=== PATIENT | female | born 1995 | race Two or more races ===

== ENCOUNTER 2019-04-04 22:51 | Emergency (ER) | payer MEDICAID, OTHER ==
[~2019-04-04] VITALS: Ht 149.9 cm; Wt 52.2 kg
[2019-04-04 23:44] VITALS: BP 117/87
== END 2019-04-05 01:03 | disposition left against medical advice (07) ==
LOC: ER 22:54
DX: N39.0 Urinary tract infection, site not specified (principal); Z53.21 Procedure and treatment not carried out due to patient leaving prior to being seen by health care provider

== ENCOUNTER 2022-09-24 05:14 | Emergency (ER) | payer MEDICAID ==
[~2022-09-24] VITALS: Ht 149.9 cm; Wt 59.1 kg
[2022-09-24 08:04] VITALS: BP 107/58
[2022-09-24] MEDS ORDERED: ACETAMINOPHEN 500 MG TAB PO ONE (09:00)
[2022-09-24] MEDS ORDERED: CEPH-510 PO (10:10)
== END 2022-09-24 10:14 | disposition home or self-care (01) ==
LOC: ER 05:14
DX: S91.201A Unspecified open wound of right great toe with damage to nail, initial encounter (principal); Z88.1 Allergy status to other antibiotic agents; X58.XXXA Exposure to other specified factors, initial encounter; Y93.89 Activity, other specified; Y92.89 Other specified places as the place of occurrence of the external cause; Y99.8 Other external cause status
CPT/HCPCS: 73630

== ENCOUNTER 2022-11-14 08:43 | Emergency (ER) | payer MEDICAID ==
[~2022-11-14] VITALS: Ht 149.9 cm; Wt 59.6 kg
[~2022-11-14 08:43] MED LIST: CEPH-510 PO
[2022-11-14 09:16] LABS: Urine Bacteria NONE SEEN /hpf (None Seen); Urine Blood 3+ /uL (Negative); Urine Specific Gravity 1.023 (1.001-1.035); Urine WBC 1 /hpf (0 - 5)
[2022-11-14 09:26] LABS: Basophils # (auto) 0 10 ^3/uL (0-0.2); Basophils % (auto) 0.8 % (0.0-2.0); Eosinophils # (auto) 0.1 10 ^3/uL (0-0.8); Eosinophils % (auto) 1.2 % (0.0-7.0); Hematocrit 39.7 % (36.0-46.0); Hemoglobin 13.3 g/dL (12.2-16.2); Lymphocytes # (auto) 1.8 10 ^3/uL (0.4-5.4); Lymphocytes % (auto) 30.6 % (10.0-50.0); Mean Corpuscular Hemoglobin 31.2 pg (28.0-32.0); Mean Corpuscular Hgb Conc. 33.6 g/dL (32.0-36.0); Mean Corpuscular Volume 93.1 fL (80.0-100.0); Monocytes # (auto) 0.4 10 ^3/uL (0-1.3); Monocytes % (auto) 6.2 % (0.0-12.0); Neutrophils # (auto) 3.7 10 ^3/uL (1.6-8.6); Neutrophils % (auto) 61.2 % (37.0-80.0); Red Blood Cells 4.26 10^6/uL (4.0-5.20); Red Cell Distribution Width 12.4 % (11.8-14.3)
[2022-11-14 09:53] LABS: Albumin 3.7 g/dL (3.4-5.0); Calcium 8.5 mg/dL (8.5-10.1); Potassium 4.1 mmol/L (3.5-5.1)
[2022-11-14 10:02] LABS: BUN/Creatinine Ratio 23.4 (10.0-20.0); Bilirubin, Total 0.3 mg/dL (0.2-1.0); Total Protein 7.2 g/dL (6.4-8.2)
[2022-11-14 12:38] VITALS: BP 120/81
== END 2022-11-14 12:39 | disposition home or self-care (01) ==
LOC: ER 08:43
DX: O20.8 Other hemorrhage in early pregnancy (principal); R10.2 Pelvic and perineal pain; Z3A.01 Less than 8 weeks gestation of pregnancy
CPT/HCPCS: 36415; 76801; 76817; 80053; 81001; 81025; 84702; 85025